=== PATIENT | male | born 1945 | race Caucasian/White ===

== ENCOUNTER 2022-09-30 19:02 | Emergency (ER) | payer OTHER, SELFPAY ==
--- NOTE | ~2022-09-30 | CT_ITS ---
EXAMINATION: CT HEAD WITHOUT CONTRAST CLINICAL INFORMATION: Sudden headache, rule out intracranial hemorrhage COMPARISON: None available. TECHNIQUE: Contiguous axial imaging was performed from the skull base to vertex without intravenous administration of contrast. This CT examination was performed using dose optimization techniques as appropriate, variously including the following: *Automated exposure control *Adjustment of mA and/or kV according to patient size (this includes techniques or standardized protocols for targeted exams where dose is matched to indication/reason for exam; i.e. extremities or head) *Use of iterative reconstruction technique DLP: 826 mGy-cm FINDINGS: There is no evidence of acute intracranial hemorrhage or territorial infarction. No abnormal mass-effect or midline shift is seen. Hyatt to white matter differentiation is well preserved. No extra-axial fluid collections are identified. The ventricles are normal in size. Mild volume loss is noted. Mild left nasal bone deformity is age-indeterminate though favored to be chronic in the absence of adjacent soft tissue swelling. The mastoid air cells and visualized portions of the paranasal sinuses are well-aerated. CT/CT head/brain wo IV con IMPRESSION: No acute intracranial pathology.
[2022-09-30 19:13] VITALS: BP 130/61; BP 132/64; PULSE 60; PULSE 61; RESP 16; TEMP 36.6; O2SAT 98; BMI 25.4
--- NOTE | 2022-09-30 19:13 | ED.HA ---
HPI - Headache General Chief Complaint: Headache Stated Complaint: HEADACHE X 4 HRS Time Seen by Provider: 09/30/22 19:06 Source: patient and EMS Mode of arrival: EMS Limitations: no limitations History of Present Illness HPI Narrative: This is a 76-year-old male who has a history of coronary artery disease with cabg., hypertension, hyperlipidemia, currently on Xarelto presents to the ER with complaints of generalized headache which began several hours ago with multiple episodes of vomiting. Patient reports when he woke up this morning he did have a very dull headache but then decided to go golfing. Headache became very several hours ago and patient has had multiple episodes of vomiting prior to arrival. Patient describes the headache as the worst headache of his life. MD elicited complaint: headache Related Data Allergies Allergy/AdvReac Type Severity Reaction Status Date / Time No Known Allergies Allergy Unverified 11/20/19 14:43 rosuvastatin [Crestor] AdvReac Unknown muscle Verified 02/29/16 00:00 aches Review of Systems Review of Systems: Yes all other systems are reviewed and are negative Constitutional: Constitutional: Reports no additional constitutional complaints, Denies body ache(s), Denies chills, Denies fever(s), Reports headache(s) and Denies weakness Eyes: Eyes: Reports no additional eye complaints and Denies change in vision ENT: Reports system reviewed and no additional complaints, except as documented, Denies dizziness, Reports headache(s), Denies nasal congestion, Denies nasal discharge and Denies neck pain Cardiovascular: Cardiovascular: Reports no additional cardiovascular complaints, Denies chest pain, Denies leg edema and Denies dyspnea Respiratory: Respiratory: Reports no additional respiratory complaints, Denies cough and Denies dyspnea Gastrointestinal: Gastrointestinal: Reports no additional gastrointestinal complaints, Denies abdominal pain, Denies diarrhea, Reports nausea and Reports vomiting Genitourinary: Genitourinary: Denies urinary incontinence Musculoskeletal: Musculoskeletal: Reports no additional musculoskeletal complaints, Denies back pain, Denies arthralgias, Denies joint swelling, Denies neck pain, Denies numbness and Denies tingling Integumentary/Breasts: Skin/Breast: Reports system reviewed and no additional complaints, except as docu and Denies rash Neurologic: Reports system reviewed and no additional complaints, except as documented, Denies Abnormal speech present, Denies dizziness, Reports headache(s), Denies numbness, Denies tingling and Denies weakness PMFSH Past Medical History Attestation statement: The following information was validated with the patient. Source: old records reviewed and nursing notes reviewed Social History Social History Alcohol intake: current Alcohol intake frequency: 0-2 drinks per day Alcohol type: beer Smoked in Last 30 Days: No Use of substances other than those prescribed or required for medical reasons: No Advance Directives: No Advance Directives Information Provided: No Physical Exam Vital Signs: Vital Signs: Last Vital Signs Temp 98.0 F 09/30/22 22:00 Pulse 63 09/30/22 22:00 Resp 16 09/30/22 19:13 BP 112/52 L 09/30/22 22:00 Pulse Ox 96 09/30/22 22:00 O2 Del Method Room Air 09/30/22 22:00 BMI result Body Mass Index 25.4 Const: General: cooperative, healthy appearing, comfortable and no acute distress Orientation/consciousness: patient oriented x3 Limitations: no limitations HEENT: Head: Yes normal to inspection and No Temporal artery tenderness present Ears: hearing grossly normal bilaterally General nose exam: Normal external nose present Face and sinus: Yes normal facial exam Mouth: Normal oral and palatal mucosa present Throat: Yes posterior oropharynx normal Eyes: General: appearance normal, both eyes and all related structures Pupils: Equal, round and reactive pupils present Neck: Neck: Yes normal visual inspection Chest: Chest palpation & inspection: normal inspection of the chest Resp: Effort & Inspection: normal respiratory effort Auscultation: clear to auscultation bilaterally Cardio: Rate: regular rate Rhythm: regular rhythm Peripheral pulses: Peripheral pulses 2+ throughout GI: Inspection: Yes normal to inspection Palpation (GI): Soft to palpation and nontender Auscultation: normal bowel sounds Back/Spine/Pelvis: Thoracic/Lumbar Spine: thoracic and lumbar spine normal to inspection Skin: General skin exam: no rashes or lesions noted Neuro: General: patient oriented x3, moves all extremities, no focal motor deficits and normal sensation to monofilament Cranial nerves: Yes CN's II-XII intact bilaterally, Yes Equal, round and reactive pupils present, Yes Bilaterally intact EOM present, Yes Nystagmus not present, Yes Normal facial strength present and Yes Midline tongue present Cognition (Neuro): normal cognition Speech: No Abnormal speech present Gait exam (Neuro): Normal gait present Motor exam (neuro): 5/5 motor strength present throughout Sensory Exam: Normal double simultaneous stimulation for sensation Extrem: General: Yes normal to inspection, Yes no pedal edema and Yes no calf tenderness NIH Stroke Scale Internal: Initial- Upon Arrival Level of Consciousness: Alert Level of Consciousness Questions: Answers both questions correctly Level of Consciousness Commands: Performs both tasks correctly Best Gaze: Normal Visual: No visual loss Facial Palsy: Normal Motor Arm (Right): No drift Motor Arm (Left): No drift Motor Leg (Right): No drift Motor Leg (Left): No drift Limb Ataxia: Absent Sensory: Normal Best Language: No aphasia Dysarthia: Normal Extinction and Inattention: No abnormality Score: 0 Course Course Course Narrative: 2249- CT of head is negative for any intracranial hemorrhage. Labs are unremarkable. headache is resolved. Patient is tolerating mitchell mary beth with no additional vomiting episodes. ? Migraine vs heat exhaustion as patient was outside all day playing golf in the heat. recommend increasing fluids at home. Reviewed worrisome signs and symptoms when to return to the emergency room. Comfortable plan for discharge home. Medications Administered Discontinued Medications Generic Name Dose Route Start Last Admin Trade Name Freq PRN Reason Stop Dose Admin Diphenhydramine HCl 25 mg 09/30/22 19:25 09/30/22 19:39 Diphenhydramine Hcl 50 Mg/Ml Vial IVPUSH 09/30/22 19:26 25 mg ONCE ONE Administration Sodium Chloride 1,000 mls @ 999 mls/hr 09/30/22 19:14 09/30/22 19:39 Ns IV 09/30/22 20:14 999 mls/hr .Q1H1M STA Administration Metoclopramide HCl 10 mg 09/30/22 19:25 09/30/22 19:39 Metoclopramide Hcl 10 Mg/2 Ml Vial IVPUSH 09/30/22 19:26 10 mg ONCE ONE Administration Medical Decision Making Medical Decision Making MDM Narrative: This is a 76-year-old male on Xarelto who presents to the ER with severe headache and multiple episodes of vomiting today. On exam arrival patient has a normal neurological exam with no focal deficits. His NIH is 0. Due to severe headache and anticoagulation use he went directly to CT scan for a CT of his head to rule out intracranial hemorrhage. Will obtain labs, place IV and give fluids, Reglan and Benadryl. Differential Diagnosis Differential Diagnoses: The differential diagnosis associated with the presentation includes Migraine subarachnoid hemorrhage, temporal arteritis-less likely with no temporal artery tenderness with no significant elevation of inflammatory markers, pseudotumor cerebri- less likely with no change with position Lab Data MDM Lab Attestation statement: I reviewed the patient's lab results. 09/30/22 19:33 09/30/22 19:33 Labs: Lab Results 09/30/22 09/30/22 09/30/22 Range/Units 19:33 19:33 19:33 WBC 12.2 H (4.8-10.8) X10*3/uL RBC 4.54 L (4.60-5.80) X10*6/uL Hgb 14.2 (14.0-18.0) g/dl Hct 41.5 L (42.0-52.0) % MCV 91.4 (80.0-98.0) fL MCH 31.3 (27.0-33.0) pg MCHC 34.2 (31.0-36.0) g/dl RDW 13.0 (11.0-16.0) % Plt Count 209 (160-400) X10*3/uL MPV 10.6 (9.4-12.4) fL Immature Gran % (Auto) 0.4 (0.0-0.4) % Neut % (Auto) 83.2 H (45-73) % Lymph % (Auto) 5.7 L (20-40) % Pettis % (Auto) 10.2 (2-11) % Eos % (Auto) 0.3 (0-4) % Baso % (Auto) 0.2 (0-2) % Lymph # (Auto) 0.7 L (1.2-4.9) X10*3/uL Pettis # (Auto) 1.3 H (0.1-1.2) X10*3/uL Eos # (Auto) 0.0 (0.0-0.4) X10*3/uL Baso # (Auto) 0.0 (0.0-0.2) X10*3/uL Abs Immat Gran (auto) 0.05 H (0.00-0.03) X10*3/uL Absolute Neuts (auto) 10.1 H (2.0-8.3) x10*3/uL Absolute Nucleated RBC 0.000 (0.0-0.012) X10*3/uL Nucleated RBC % (auto) 0.0 (0.0-0.2) /100WBC ESR 2 (0-15) MM/HR PT (11.1-13.3) SEC INR (0.9-1.1) Sodium 138 (135-145) mmol/L Potassium 4.4 (3.3-5.1) mmol/L Chloride 105 (96-108) mmol/L Carbon Dioxide 20 L (22-29) mmol/L Anion Gap 17 (12-20) BUN 15 (9-16) mg/dL Creatinine 0.82 (0.5-1.4) mg/dL Estim Creat Clear Calc 76.6 Estimated GFR > 60 Random Glucose 108 (60-115) mg/dL Calcium 8.9 (8.4-10.2) mg/dL Troponin I High Sens (<3.5-35.0) ng/L C-Reactive Protein 1.70 H (< or = 0.50) mg/dL COVID-19 ([facility]) (Negative) COVID-19 Clin Com 09/30/22 09/30/22 09/30/22 Range/Units 19:33 19:34 19:41 WBC (4.8-10.8) X10*3/uL RBC (4.60-5.80) X10*6/uL Hgb (14.0-18.0) g/dl Hct (42.0-52.0) % MCV (80.0-98.0) fL MCH (27.0-33.0) pg MCHC (31.0-36.0) g/dl RDW (11.0-16.0) % Plt Count (160-400) X10*3/uL MPV (9.4-12.4) fL Immature Gran % (Auto) (0.0-0.4) % Neut % (Auto) (45-73) % Lymph % (Auto) (20-40) % Pettis % (Auto) (2-11) % Eos % (Auto) (0-4) % Baso % (Auto) (0-2) % Lymph # (Auto) (1.2-4.9) X10*3/uL Pettis # (Auto) (0.1-1.2) X10*3/uL Eos # (Auto) (0.0-0.4) X10*3/uL Baso # (Auto) (0.0-0.2) X10*3/uL Abs Immat Gran (auto) (0.00-0.03) X10*3/uL Absolute Neuts (auto) (2.0-8.3) x10*3/uL Absolute Nucleated RBC (0.0-0.012) X10*3/uL Nucleated RBC % (auto) (0.0-0.2) /100WBC ESR (0-15) MM/HR PT 15.3 H (11.1-13.3) SEC INR 1.3 H (0.9-1.1) Sodium (135-145) mmol/L Potassium (3.3-5.1) mmol/L Chloride (96-108) mmol/L Carbon Dioxide (22-29) mmol/L Anion Gap (12-20) BUN (9-16) mg/dL Creatinine (0.5-1.4) mg/dL Estim Creat Clear Calc Estimated GFR Random Glucose (60-115) mg/dL Calcium (8.4-10.2) mg/dL Troponin I High Sens 8.2 (<3.5-35.0) ng/L C-Reactive Protein (< or = 0.50) mg/dL COVID-19 ([facility]) Negative (Negative) COVID-19 Clin Com See Note Independent Interpretation I performed an independent interpretation of an: CT Scan Interpretation: I independently reviewed the CT scan and agree with the radiology report Radiology Impression Discussion of test interpretation with radiology: I have reviewed the radiologist's reading. Radiologist Impression: Launch?Image [address] [address] [address] Scan Report Signed Patient: Aj Gentile MR#: [id number] : 1945 Acct:[id number] Age/Sex: 76 / M ADM Date: 09/30/22 Loc: HO.ED Attending Dr: Ordering Physician: Carol Ann Ha NP Date of Service: 09/30/22 Procedure(s): CT head/brain wo IV con Accession Number(s): [id number] cc: Carol Ann Ha NP~ EXAMINATION: CT HEAD WITHOUT CONTRAST CLINICAL INFORMATION: Sudden headache, rule out intracranial hemorrhage? COMPARISON: None available. TECHNIQUE: Contiguous axial imaging was performed from the skull base to vertex without intravenous administration of contrast. This CT examination was performed using dose optimization techniques as appropriate, variously including the following: *Automated exposure control *Adjustment of mA and/or kV according to patient size (this includes techniques or standardized protocols for targeted exams where dose is matched to indication/reason for exam; i.e. extremities or head) *Use of iterative reconstruction technique DLP: 826 mGy-cm FINDINGS: There is no evidence of acute intracranial hemorrhage or territorial infarction. No abnormal mass-effect or midline shift is seen. Hyatt to white matter differentiation is well preserved. No extra-axial fluid collections are identified. The ventricles are normal in size. Mild volume loss is noted. Mild left nasal bone deformity is age-indeterminate though favored to be chronic in the absence of adjacent soft tissue swelling. The mastoid air cells and visualized portions of the paranasal sinuses are well-aerated. ? CT/CT head/brain wo IV con IMPRESSION: No acute intracranial pathology. ? Independent Historian Clinical information obtained from an independent historian. History obtained from or confirmed by: Spouse and EMS clinical information was obtained from EMS and confirmed with the patient at bedside who I confirmed the history of present illness with. Discharge Plan Discharge Clinical Impression: Headache Patient Disposition: Home, Self-Care Instructions: Acute Headache (DC) Additional Instructions: stay well-hydrated return for any worsening symptom Referrals: Torres Blancas MD [Primary Care Provider] - 1 week Interventions: ED Discharge Assessment Last Done: 09/30/22 22:53 Discharge Date/Time: 09/30/22 22:54
--- NOTE | 2022-09-30 19:23 | PC.NURSE ---
Patient BIBA from home. He reports he developed severe headache, abdominal pain nausea, vomiting x7 episodes, dizziness after playing golf this morning. Patient is in blood thinner Xarelto, he also takes Aspirin 81 mg. 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 Patient assessed by ED provider at bedside and taken to CT scan. .
[2022-09-30] MEDS: Metoclopramide HCl 10 MG/2 ML VIAL IVPUSH (19:39)
[2022-09-30] MEDS: diphenhydrAMINE HCL 50 MG/ML VIAL 25 MG IVPUSH (19:39)
[2022-09-30] MEDS: 0.9 % Sodium Chloride 1,000 ML 999 ML IV (19:39)
[2022-09-30 19:40] LABS: MANUAL DIFF FLAG NO
--- NOTE | 2022-09-30 19:45 | PC.NURSE ---
Pt BIBA set to CT, line established 20-R-AC, labs drawn, patient medicated for nausea. results pending.
[2022-09-30 19:54] LABS: COVID-19 Test Negative (Negative); IDNOW Serial# 08D9AD1C
[2022-09-30 20:03] LABS: Anion Gap 17 (12-20); Blood Urea Nitrogen 15 mg/dL (9-16); Calcium 8.9 mg/dL (8.4-10.2); Carbon Dioxide 20 mmol/L (22-29); Chloride 105 mmol/L (96-108); Creatinine Clr Calc Pharmacy 76.6; Estimated Glomerular Filt Rate > 60; Glucose Random 108 mg/dL (60-115); Potassium 4.4 mmol/L (3.3-5.1); Sodium 138 mmol/L (135-145)
[2022-09-30 20:12] LABS: Basophils Percent Auto 0.2 % (0-2); Eosinophils Percent Auto 0.3 % (0-4); Hematocrit 41.5 % (42.0-52.0); Hemoglobin 14.2 g/dl (14.0-18.0); Imm Gran Abs Auto 0.05 X10*3/uL (0.00-0.03); Imm Gran Pct Auto 0.4 % (0.0-0.4); Lymphocytes Absolute Auto 0.7 X10*3/uL (1.2-4.9); Lymphocytes Percent Auto 5.7 % (20-40); Mean Corpuscular HGB Conc 34.2 g/dl (31.0-36.0); Mean Corpuscular Hemoglobin 31.3 pg (27.0-33.0); Mean Corpuscular Volume 91.4 fL (80.0-98.0); Mean Platelet Volume 10.6 fL (9.4-12.4); Monocytes Absolute Auto 1.3 X10*3/uL (0.1-1.2); Monocytes Percent Auto 10.2 % (2-11); Neutrophils Absolute Auto 10.1 x10*3/uL (2.0-8.3); Neutrophils Percent Auto 83.2 % (45-73); Platelet Count 209 X10*3/uL (160-400); Red Blood Count 4.54 X10*6/uL (4.60-5.80); White Blood Count 12.2 X10*3/uL (4.8-10.8)
[2022-09-30 20:15] LABS: Troponin-I High Sensitivity 8.2 ng/L (<3.5-35.0)
[2022-09-30 20:21] LABS: INTERNATIONAL NORM RATIO 1.3 (0.9-1.1); Prothrombin Time 15.3 SEC (11.1-13.3)
[2022-09-30 21:06] LABS: Erythrocyte Sedimentation Rate 2 MM/HR (0-15)
[2022-09-30 22:00] VITALS: BP 112/52; PULSE 63; TEMP 36.7; O2SAT 96
== END 2022-09-30 22:54 | disposition home or self-care (01) ==
PROVIDERS: Nurse Practitioner Family; Emergency Provider Emergency Medicine Emergency Medical Services; PCP Internal Medicine
DX: R51.9 Headache, unspecified (principal); I10 Essential (primary) hypertension; E78.5 Hyperlipidemia, unspecified; Z20.822 Contact with and (suspected) exposure to COVID-19; R29.700 NIHSS score 0; Z95.1 Presence of aortocoronary bypass graft; Z79.899 Other long term (current) drug therapy
CPT/HCPCS: 36415; 70450; 80048; 84484; 85025; 85610; 85652; 86140; 87635; 96361; 96374; 96375; 99284; J1200; J2765

== ENCOUNTER 2023-03-14 08:00 | Outpatient (RCR) | payer OTHER, SELFPAY ==
[2022-12-29 08:04] VITALS: BP 135/72; PULSE 62; O2SAT 97
== END 2023-03-14 09:12 | disposition home or self-care (01) ==
LOC: HO.PT 08:00
PROVIDERS: PCP Internal Medicine; Visit Provider Internal Medicine
DX: M25.552 Pain in left hip (principal); S39.012A Strain of muscle, fascia and tendon of lower back, initial encounter
CPT/HCPCS: 97110; 97140; 97162; 97530